=== PATIENT | female | born 1990 | race Caucasian/White ===

== ENCOUNTER 2017-02-28 13:46 | Emergency (ER) | payer SELFPAY ==
[~2017-02-28] VITALS: Ht 175.3 cm; Wt 76.7 kg
[~2017-02-28 13:46] MED LIST: BACTRIM,SEPT1 TABLET PO; FLEXERIL10 MG PO; IBUPROFEN800 MG PO; KEFLEX500 MG PO; NO HOME MEDS; PRENATAL VITAM1 EAC1 PO; ROXICET 5-3251 EACH PO; TRAMADOL HCL50 MG PO; VALTREX50 MG/ML PO
[2017-02-28 16:27] LABS: HEMATOCRIT 40.9 % (36.0-46.0); MCH 29.6 PG (29.0-34.0); MCHC 33.7 G/DL (30.0-36.0); MCV 87.6 FL (83-99); MEAN PLAT.VOLUME 10.4 uM^3 (9.5-12.4); PLATELET COUNT 198 K/uL (156-360); RBC DIS.WIDTH-CV 12.6 % (11.8-14.6); RBC DIS.WIDTH-SD 40.3 % (39-53); RED BLOOD COUNT 4.67 M/uL (3.80-5.20); WHITE BLOOD COUNT 10.3 K/uL (4.1-10.2)
[2017-02-28 16:51] LABS: ANION GAP 9 MEQ/L (2-14); CHLORIDE 104 MEQ/L (99-109); POTASSIUM 3.7 MEQ/L (3.7-5.4); SAMPLE HEMOLYSIS CHECK 0; SAMPLE ICTERIC CHECK 0; SAMPLE LIPEMIA CHECK 0; SODIUM 138 MEQ/L (136-147)
[2017-02-28 16:56] LABS: GFR ESTIMATE (CALCULATED) > 59 mL/min/; GLUCOSE 81 mg/dL (70-99); UREA NITROGEN (BUN) 12 mg/dL (9-23)
[2017-02-28 17:13] LABS: QUANTITATIVE HCG < 4.0 MIU/ML
[2017-02-28] MEDS ORDERED: DOXYCYCLINE HY100 MG PO (17:20)
[2017-02-28] MEDS ORDERED: FLAGYL500 MG PO (17:20)
[2017-02-28 17:29] VITALS: BP 118/70
[2017-02-28 17:31] LABS: ADD MIUA? YES; BILIRUBIN NEGATIVE; BLOOD SMALL; COLOR YELLOW ((YELLOW)); GLUCOSE (STRIP) NEGATIVE; KETONES 20; LEUKOCYTES SMALL; NITRITE NEGATIVE; PROTEIN (STRIP) NEGATIVE; SPECIFIC GRAVITY 1.024 (1.000-1.030)
[2017-02-28 17:33] LABS: BACTERIA NONE SEEN /HPF; EPITHELIAL CELLS RARE /HPF; MUCUS 1+ /LPF; RED BLOOD CELLS 0-5 /HPF (0-5); UCUL ADDED? NO; WHITE BLOOD CELLS 0-5 /HPF (0-5)
[2017-03-02 12:02] LABS: NEISSERIA GONORRHOEAE NEGATIVE
[2017-03-02 12:05] LABS: CHLAMYDIA TRACHOMATIS NEGATIVE
== END 2017-02-28 17:30 | disposition home or self-care (01) ==
LOC: EME 13:46
PROVIDERS: Physician Assistant
PROC: 0UCGXZZ Extirpation of Matter from Vagina, External Approach (ICD-10-PCS; principal; 2017-02-28)
DX: T19.2XXA Foreign body in vulva and vagina, initial encounter (principal); N89.8 Other specified noninflammatory disorders of vagina; F17.200 Nicotine dependence, unspecified, uncomplicated; N39.0 Urinary tract infection, site not specified
CPT/HCPCS: 76856; 80048; 81003; 84702; 85027; 87210; 87491; 87591; 99281; 99284

== ENCOUNTER 2017-09-15 19:45 | Emergency (ER) | payer OTHER ==
[~2017-09-15] VITALS: Ht 175.3 cm; Wt 80.9 kg
[~2017-09-15 19:45] MED LIST changes: +DOXYCYCLINE HY100 MG PO; +FLAGYL500 MG PO
[2017-09-15] MEDS ORDERED: MOTRIN600 MG PO (21:42)
[2017-09-15] MEDS ORDERED: FLEXERIL5 MG PO (21:42)
[2017-09-15 21:51] VITALS: BP 137/87
== END 2017-09-15 21:51 | disposition home or self-care (01) ==
LOC: RME 19:45 → EME 19:45 → RME 21:51
DX: M41.9 Scoliosis, unspecified (principal); M54.5 Low back pain; F17.200 Nicotine dependence, unspecified, uncomplicated
CPT/HCPCS: 72040; 72070; 72100; 99281; 99284; J1885